=== PATIENT | female | born 1990 | race Caucasian/White ===

== ENCOUNTER 2016-12-12 20:22 | Emergency (ER) | payer OTHER ==
--- NOTE | 2016-12-12 21:13 | EDPHY ---
H & P Stated Complaint: feels " out of it", daisykey, muscle spasms Time Seen by Provider: 12/12/16 21:14 HPI/ROS: CHIEF COMPLAINT: Altered mental status HISTORY OF PRESENT ILLNESS: This patient is a 26 year old female who presents to the Emergency Department complaining that she has been "out of it" today. Her boyfriend reports that she was speaking word salad when she first awoke this morning and seemed "spaced out." She tells me that she felt "slow" all day and vomited twice. Upon arrival, she is mentating and speaking appropriately. She complains of a mild headache and nausea. She denies cough, chest pain, dyspnea, or urinary complaints. Medical history includes migraines without aura , benign essential tremors that she states have been worse today than baseline, and chronic low back pain. She denies numbness or weakness in her legs, bowel or urinary problems. She also has a history of insomnia and tells me she took 15mg Ambien last night--greater than her typical dose. REVIEW OF SYSTEMS: A ten point review of systems was performed and is negative with the exception of the items mentioned in the HPI. Source: Patient Exam Limitations: No limitations - Personal History LMP (Females 10-55): Over 28 Days Ago Current Tetanus Diphtheria and Acellular Pertussis (TDAP): Yes - Medical/Surgical History Hx Asthma: No Hx Chronic Respiratory Disease: No Hx Diabetes: No Hx Cardiac Disease: No Hx Renal Disease: No Hx Cirrhosis: No Hx Alcoholism: No Hx HIV/AIDS: No Hx Splenectomy or Spleen Trauma: No Other PMH: migraines. type 2 bipolar. lower back pain. essential UE tremor - Social History Smoking Status: Never smoked Additional Social History: She is here with her boyfriend, with whom she lives. 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 - Physical Exam Exam: General Appearance: Alert. Vital signs reviewed. Eyes: Pupils equal and round, no conjunctival injection, no discharge. Anicteric. ENT, Mouth: Mucous membranes are moist, no oropharyngeal erythema or edema. Neck: No lymphadenopathy, supple, no meningeal signs. Respiratory: Lungs are clear to auscultation; no wheezes, rales, or rhonchi. Cardiovascular: Regular rate and rhythm; no murmur, rub, or gallop. Gastrointestinal: Abdomen is soft and nontender, no masses or organomegaly, bowel sounds normal. Skin: Warm and dry, no rashes on exposed skin, normal color. Back: Nontender to palpation over the thoracolumbar spine. No CVAT. Extremities: No lower extremity edema, no calf tenderness or swelling. Neurological: Alert and oriented. Moving all four extremities easily and equally. Cranial nerves II through XII are examined and are intact (visual acuity not tested). Strength is 5 over 5 bilaterally with testing of all major motor groups. Sensation is intact to light touch over all 4 extremities. Deep tendon reflexes are 2+ in the biceps and knees bilaterally. Gait is normal. [id number] is performed accurately. No pronator drift. No tremor noted. No fasciculations. Psychiatric: Normal affect. Constitutional: Initial Vital Signs Temperature (C) 37.2 C 12/12/16 20:32 Heart Rate 93 12/12/16 20:32 Respiratory Rate 20 12/12/16 20:32 Blood Pressure 128/80 H 12/12/16 20:32 O2 Sat (%) 97 12/12/16 20:32 O2 Delivery Mode Room Air Allergies/Adverse Reactions: No Known Allergies Allergy (Unverified 12/12/16 20:29) Home Medications: Medication Instructions Recorded Ambien 12/12/16 Hydroxyzine HCl 12/12/16 LAMOTRIGINE 12/12/16 Orsythia-28 Tablet 12/12/16 Propranolol HCl 12/12/16 Medical Decision Making - Diagnostics Imaging: Study: CT of the head Indication: AMS, brain fog, headache Results: CT scan of the head was obtained. The results of the study are: normal. The study was read by the radiologist, Dr. Paresh Gardner. I viewed the images myself on the PACS system. ED Course/Re-evaluation: I discussed with the patient my recommendation that we proceed with a CT scan of the head, labs, and UA. I answered all of her questions. She is agreeable to this. IV established. 1L IV NS and 4mg IV Zofran administered. No vomiting in Ed. Abdomen nontender on re-exam. 2234: CT results reported to me by Dr. Gardner, radiology. I discussed imaging results with the patient who is relieved. Bloodwork essentially normal. Initial considerations included CVA (unlikely), venous sinus thrombosis (she has no known risk factors), meningitis (no fever or meningeal signs), headache phenomenon (she has a mild headache, not unusual for her), anxiety/stress, effect of medication (Ambien). I think her signs/sx are most likely related to stress and to the dose of Ambien that she took. - Data Points Laboratory Results: Laboratory Results 12/12/16 22:30 12/12/16 22:30 Medications Given: Discontinued Medications Sodium Chloride (Ns) 1,000 mls @ 0 mls/hr IV ONCE ONE PRN Reason: Wide Open Stop: 12/12/16 22:05 Last Admin: 12/12/16 22:35 Dose: 1,000 mls Ketorolac Tromethamine (Toradol) 30 mg IVP EDNOW ONE Stop: 12/12/16 22:05 Last Admin: 12/12/16 23:19 Dose: 30 mg Ondansetron HCl (Zofran) 4 mg IVP EDNOW ONE Stop: 12/12/16 22:05 Last Admin: 12/12/16 22:45 Dose: 4 mg Ondansetron HCl (Zofran Odt 4 Mg Prepack#2) 1 btl TAKEHOME EDNOW ONE Stop: 12/13/16 00:01 Last Admin: 12/13/16 00:02 Dose: 1 btl Departure - Departure Disposition: Home, Routine, Self-Care Clinical Impression: Vomiting Qualifiers: Vomiting type: unspecified Vomiting Intractability: non-intractable Nausea presence: with nausea Qualifier Code: (R11.2) Nausea with vomiting, unspecified Headache Qualifiers: Headache type: unspecified Headache chronicity pattern: acute headache Intractability: not intractable Qualifier Code: (R51) Headache Condition: Good Instructions: Acute Nausea and Vomiting (ED), Acute Headache (ED) Additional Instructions: Use the zofran, one wafer under your tongue, for nausea if needed. Follow up with your primary care doctor as needed. Referrals: [facility] [Outside] - As per Instructions Report Scribed for: Gogo Wells Report Scribed by: Pattie Hoffmann Date of Report: 12/12/16 Time of Report: 21:14 Physician Review and Approval Statement: 12/12/16 21:13 Portions of this note were transcribed by the biomedical equipment technician. I, Dr. Gogo Wells, personally performed the history, physical exam, and medical decision- making; and confirmed the accuracy of the information in the transcribed note.
[2016-12-12] MEDS ORDERED: NS 1,000 ML IV ONE (22:04)
[2016-12-12] MEDS ORDERED: ONDANSETRON 4 MG/2 ML VIAL IVP ONE (22:04)
[2016-12-12] MEDS ORDERED: KETOROLAC 30 MG/1 ML SDV IVP ONE (22:04)
--- NOTE | 2016-12-12 22:33 | CT ---
CT Scan of Head (Without Contrast) Clinical Indications: Headache, vomiting. Technique: Axial CT images were acquired from foramen magnum through vertex, without intravenous con trast. Soft tissue and bone windows were reviewed on the computer workstation. Images were reconstr ucted down to 1.25 mm images. Dose reduction techniques were utilized. Findings: No mass lesions are seen, and there is no evidence of intracranial hemorrhage or acute inf arct. The ventricles and subarachnoid spaces are normal in size for this age group. Bone windows re veal no sign of fracture. The visualized paranasal sinuses and mastoid air cells are free of fluid. Impression: Normal CT of the head. I discussed results by telephone with Dr. Wells at 2230 hours.
[2016-12-12 22:39] LABS: % IMMATURE GRANULYOCYTES 0.3 % (0.0-1.1); ABSOLUTE IMMATURE GRANULOCYTES 0.03 10^3/uL (0.00-0.10); ADD DIFF? NO; ADD MORPH? NO; ADD SCAN? NO; ATYPICAL LYMPHOCYTE FLAG 0 (0-99); FRAGMENT RBC FLAG 0 (0-99); HEMATOCRIT 39.1 % (38.0-47.0); HEMOGLOBIN 13.4 g/dL (12.6-16.3); LEFT SHIFT FLG 0 (0-99); LIPEMIA HEMOLYSIS FLAG 90 (0-99); MEAN CELL HEMOGLOBIN 31.5 pg (27.9-34.1); MEAN CELL HEMOGLOBIN CONCENTR. 34.3 g/dL (32.4-36.7); MEAN PLATELET VOLUME 9.4 fL (8.7-11.7); PLATELET CLUMPS FLAG 0 (0-99); PLATELET COUNT 267 10^3/uL (150-400); RED BLOOD CELL COUNT 4.25 10^6/uL (4.18-5.33); RED CELL DISTRIBUTION WIDTH 11.7 % (11.5-15.2)
[2016-12-12 22:52] LABS: ANION GAP 14 mEq/L (8-16); CALCIUM 9.2 mg/dL (8.5-10.4); CARBON DIOXIDE 21 mEq/l (22-31); CHLORIDE 104 mEq/L (97-110); CREATININE 0.6 mg/dL (0.6-1.0); GLOMERULAR FILTRATION RATE > 60; GLUCOSE 81 mg/dL (70-100); POTASSIUM 3.7 mEq/L (3.5-5.2); SODIUM 139 mEq/L (134-144)
[2016-12-12 23:50] VITALS: RESP 16
[2016-12-13] MEDS ORDERED: ONDANSETRON 4MG PREPACK#2 BTL TAKEHOME ONE
[2016-12-13 00:11] VITALS: BP 119/79; PULSE 73; TEMP 98.8; O2SAT 99
== END 2016-12-13 00:09 | disposition home or self-care (01) ==
DX: R11.2 Nausea with vomiting, unspecified (principal); R51 Headache
CPT/HCPCS: 96374; J1885; J2405

== ENCOUNTER 2017-09-24 00:11 | Emergency (ER) | payer MEDICAID, OTHER ==
[2017-09-24 00:17] VITALS: TEMP 97.9
[2017-09-24 00:18] VITALS: O2SAT 97
--- NOTE | 2017-09-24 00:25 | EDPHY ---
H & P Stated Complaint: fall forward onto face (playing around) HPI/ROS: Chief complaint: Fall with facial injury History of present illness: This is a 27-year-old female who is brought to the emergency department by EMS for evaluation after falling and sustaining facial injury. Patient was attempting to jump on her brother's shoulders when she fell forward and struck her face against the ground. She sustained abrasions and a laceration to her nose. However she denies any significant pain to the face. She has no headache. She has no neck pain. She denies trauma to or pain in other parts of the body. No report of neurologic symptoms such as paresthesias, weakness or paralysis or bowel or bladder dysfunction. There was no loss of consciousness. Tetanus is up-to-date. Review of systems: A 10 point review of systems was obtained and other than described above was negative - Personal History LMP (Females 10-55): 22-28 Days Ago Current Tetanus/Diphtheria Vaccine: Yes Current Tetanus Diphtheria and Acellular Pertussis (TDAP): Yes - Medical/Surgical History Hx Asthma: No Hx Chronic Respiratory Disease: No Hx Diabetes: No Hx Cardiac Disease: No Hx Renal Disease: No Hx Cirrhosis: No Hx Alcoholism: No Hx HIV/AIDS: No Hx Splenectomy or Spleen Trauma: No Other PMH: migraines. type 2 bipolar. lower back pain. essential UE tremor - Social History Smoking Status: Never smoked - Physical Exam Exam: General Appearance: Alert, nontoxic Eyes: PERRLA. EOM intact. ENT: No hemotympanum, no Julien sign, no raccoon eyes Respiratory: Lungs clear to auscultation bilaterally Cardiac: Regular rate and rhythm. Gastrointestinal: Soft, nondistended, nontender Neurological: Alert and oriented x4. Cranial nerves 2-12 grossly intact. Strength and sensation intact and symmetrical. Ambulating without difficulty. Skin: 2 cm laceration to the bridge of the nose. Multiple abrasions to the face. Musculoskeletal: The face is nontender to palpation. The head is nontender to palpation without crepitus or bony deformity. The spine is nontender to palpation along its entire length, no crepitus, bony deformity or step-off appreciated. Patient moving all extremities without difficulty. Constitutional: Initial Vital Signs Temperature (C) 36.6 C 09/24/17 00:12 Heart Rate 86 09/24/17 00:12 Respiratory Rate 16 09/24/17 00:12 Blood Pressure 139/91 H 09/24/17 00:12 O2 Sat (%) 97 09/24/17 00:12 O2 Delivery Mode Room Air Allergies/Adverse Reactions: No Known Allergies Allergy (Unverified 12/12/16 20:29) Home Medications: Medication Instructions Recorded Ambien 12/12/16 Hydroxyzine HCl 12/12/16 LAMOTRIGINE 12/12/16 Orsythia-28 Tablet 12/12/16 Propranolol HCl 12/12/16 Medical Decision Making Procedures: Procedure: Laceration repair. Verbal consent was obtained from the patient. The 2 cm laceration on the bridge of the nose was anesthetized in the usual fashion. The wound was irrigated, draped and explored to its base with a gloved finger. There were no deep structures involved. No tendon injury was identified. The wound was repaired with 6 0 Prolene, 6 simple interrupted sutures. The wound repair was simple. The procedure was performed by myself. ED Course/Re-evaluation: Patient discussed with my secondary supervising physician Dr. Allen Gómez. Patient presents to the emergency department after falling forward striking her face against the ground. She sustained abrasions and a laceration. Wounds have been repaired, cleaned and dressed. There was no loss of consciousness, no headache or neck pain, no neurologic findings, I do not believe patient warrants imaging at this time. Patient will be discharged home with family and friend. We have discussed head injury precautions at length. We have discussed wound care. She is asked to follow up with a primary care doctor and a plastic surgeon for recheck. Strict return precautions are given. Patient voiced understanding and agreement with plan. Differential Diagnosis: Included but not limited to soft tissue injury, bony fracture, unlikely intracranial or spinal cord injury Departure - Departure Disposition: Home, Routine, Self-Care Clinical Impression: Facial laceration Qualifiers: Encounter type: initial encounter Qualified Code(s): S01.81XA - Laceration without foreign body of other part of head, initial encounter Facial abrasion Qualifiers: Encounter type: initial encounter Qualified Code(s): S00.81XA - Abrasion of other part of head, initial encounter Condition: Good Instructions: Care For Your Stitches (ED), Laceration (ED), Abrasion (ED) Additional Instructions: Follow-up with the primary care doctor and a plastic surgeon for recheck Keep wounds clean with soap and water and apply antibacterial ointment at least twice daily Stitches to be removed in 7-10 days If symptoms worsen or new symptoms develop return to the emergency room for recheck Referrals: Patient,NotPresent [Unknown] - As per Instructions Cale Estrella MD [Medical Doctor] - As per Instructions Levi Bryant JR, MD [Medical Doctor] - As per Instructions
[2017-09-24 01:18] VITALS: BP 117/77; PULSE 75; RESP 14
== END 2017-09-24 01:17 | disposition home or self-care (01) ==
LOC: EDUNIT#
PROC: 09QKXZZ Repair Nasal Mucosa and Soft Tissue, External Approach (ICD-10-PCS; principal; 2017-09-24)
DX: S01.21XA Laceration without foreign body of nose, initial encounter (principal); W01.198A Fall on same level from slipping, tripping and stumbling with subsequent striking against other object, initial encounter; Y93.39 Activity, other involving climbing, rappelling and jumping off